=== PATIENT | female | born 1995 | race Two or more races ===

== ENCOUNTER 2016-10-07 19:54 | Inpatient (IN) | payer MEDICAID ==
[~2016-10-07] VITALS: Ht 152.4 cm; Wt 94.8 kg
[2016-10-07] MEDS ORDERED: NKM (20:01)
[2016-10-07 20:11] VITALS: BP 105/58
[2016-10-07] MEDS ORDERED: Metoclopramide 10mg/2ml Inj IVP ONE (20:15)
--- NOTE | 2016-10-07 20:26 | Emergency Room Report ---
History of Present Illness General Chief Complaint: Vomiting Source: Patient Present Illness HPI 21 YO F with no known medical problems sent from urgent care for CTAP after ultrasound showed "fluid around the liver" and nausea and vomiting for one week. No diarrhea, fever/chills. Sometimes associated with epigastric pain. Denies urinary complaints. Not taking anything for pain/nausea. No previous abd/pelvic surgery. Patient also endorsing "my iron level was 6" but I think she was referring to Hb. Not taking iron replacement currently. Allergies: Coded Allergies: No Known Allergies (Unverified , 10/07/16) Patient History Past Medical History: none Past Surgical History: none Pertinent Family History: none Social History: Denies: alcohol use, drug use, smoking Last Menstrual Period: Sep Now: No Immunizations: UTD Reviewed Nursing Documentation: PMH: Agreed, PSxH: Agreed Nursing Documentation-PMH Past Medical History: No Stated History Review of Systems All Other Systems: negative except mentioned in HPI Physical Exam Vital Signs Date Time Temp Pulse Resp B/P Pulse Ox O2 Delivery O2 Flow Rate FiO2 10/07/16 19:57 99.3 120 18 105/58 100 Room Air Sp02 EP Interpretation: reviewed, normal General Appearance: normal inspection, well appearing, no apparent distress, alert, GCS 15, non-toxic Head: normocephalic, atraumatic Eyes: bilateral eye EOMI, bilateral eye PERRL ENT: normal ENT inspection, hearing grossly normal, normal voice Neck: normal inspection, full range of motion, supple, no bony tend Respiratory: normal inspection, lungs clear, normal breath sounds, no respiratory distress, no retraction, no wheezing Cardiovascular #1: regular rate, rhythm, no edema Gastrointestinal: normal inspection, normal bowel sounds, non tender, soft, no guarding, no hernia Genitourinary: no CVA tenderness Musculoskeletal: normal inspection, back normal, normal range of motion, Sheila' s Sign negative Neurologic: normal inspection, alert, oriented x3, responsive, 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 VSS. Afebrile. DDx includes cholecystitis, gastritis, colitis, gastroneteritis PLAN: Labs, anti-emetic, CTAP, UA, reassess Reevaluation Time: 21:10 Last Vital Signs Date Time Temp Pulse Resp B/P Pulse Ox O2 Delivery O2 Flow Rate FiO2 10/07/16 20:11 99.3 112 18 105/58 100 Room Air Status: improved Reevaluation Impression Labs: Hb critically low. No leuks. UA grossly infected. No other metabolic abnormality A: - Send coags, T&S. Ordered 2U PRBCs - Rocephin IV for presumed UTI - CTAP pendign at time of endorsement to Dr Mcarthur at 930pm - Will admit at the least for anemia, need for transfusion Disposition: ADMITTED INPATIENT Condition: Serious LUÍS ORELLANA M.D. Oct 07, 2016 20:25
[2016-10-07 20:41] LABS: MEAN CORPUSCULAR HEMOGLOBIN 14.9 PG (27.0-31.0); MEAN CORPUSCULAR HGB CONC 25.8 G/DL (32.0-36.0); MEAN CORPUSCULAR VOLUME 58 FL (80-99); MEAN PLATELET VOLUME 8.5 FL (6.5-10.1); PLATELET COUNT 309 K/UL (150-450); RED BLOOD COUNT 3.51 M/UL (4.20-5.40); RED CELL DISTRIBUTION WIDTH 18.9 % (11.6-14.8); WHITE BLOOD COUNT 6.9 K/UL (4.8-10.8)
[2016-10-07 20:46] LABS: KETONES,URINE NEGATIVE (NEGATIVE); LEUKOCYTE ESTERASE ,URINE 3+ (NEGATIVE); NITRITE,URINE NEGATIVE (NEGATIVE); PH,URINE 6 (4.5-8.0); PROTEIN,URINE 2+ (NEGATIVE); UROBILINOGEN,URINE 12 MG/DL (0.0-1.0)
[2016-10-07 20:47] LABS: APPEARANCE,URINE SLIGHTLY CLOUDY
[2016-10-07 20:49] LABS: ICTOTEST NEGATIVE
[2016-10-07 20:53] LABS: SQUAMOUS EPITHELIAL CELL,UR FEW /LPF (NONE/OCC); WBC,URINE TNTC /HPF (0 - 2)
[2016-10-07 20:54] LABS: BACTERIA,URINE FEW /HPF
[2016-10-07 20:57] LABS: ALANINE AMINOTRANSFERASE 15 U/L (3-33); ANION GAP 16 (5-15); ASPARTATE AMINO TRANSFERASE 49 U/L (5-40); CALCIUM 8.4 mg/dL (8.6-10.2); CARBON DIOXIDE 24 mEQ/L (20-30); CHLORIDE 95 mEQ/L (98-107); CREATININE 0.9 mg/dL (0.5-0.9); GLOMERULAR FILTRATION RATE > 60 mL/min (>60); HEMOLYSIS 0; LIPASE 33 U/L (< 60); POTASSIUM 3.7 mEQ/L (3.4-4.9); SODIUM 135 mEQ/L (135-145); TOTAL PROTEIN 7.2 g/dL (6.6-8.7)
[2016-10-07] MEDS ORDERED: Iron Sucrose 100 MG in NS 55 ML IVPB SCH (21:00)
[2016-10-07] MEDS ORDERED: cefTRIAXone 1 GM in NS 55 ML IVPB ONE (21:15)
[2016-10-07 21:30] LABS: BILIRUBIN,DIRECT 0.3 mg/dL (0.1-0.3)
[2016-10-07 21:45] LABS: INR 1.2 (0.9-1.1); PROTHROMBIN TIME 12.3 SEC (9.30-11.50)
[2016-10-07 22:12] VITALS: BP 112/75
[2016-10-07 22:27] LABS: BAND NEUTROPHILS % (MANUAL) 0 % (0-8); BASOPHILS % (MANUAL) 1 % (0-2); EOSINOPHILS % (MANUAL) 0 % (0-3); LYMPHOCYTES % (MANUAL) 12 % (20-45); NEUTROPHILS % (MANUAL) 83 % (45-75); NUCLEATED RED BLOOD CELLS 2 /100 WBC; PLATELET ESTIMATE ADEQUATE; TOTAL CELLS COUNTED 100
[2016-10-07 22:29] LABS: ANISOCYTOSIS 3+; HYPOCHROMASIA 3+; MICROCYTES 4+; POLYCHROMASIA 2+
[2016-10-07 22:30] LABS: PLATELET MORPHOLOGY NORMAL
[2016-10-07 22:45] VITALS: BP 95/44
[2016-10-08] VITALS: BP 90/39
[2016-10-08] MEDS ORDERED: Acetaminophen 650 MG SUPP RECTAL PRN (00:15)
[2016-10-08] MEDS ORDERED: Vancomycin 1gm in D5W 275ml IVPB SCH ×2 (00:30→14:00)
[2016-10-08] MEDS ORDERED: Vancomycin 1gm inj IVPB ONE (00:34)
[2016-10-08] MEDS: D5 1/2NS w/KCl 20mEq 1,000 ML IV SCH ×3 (00:48→15:42)
[2016-10-08 04:00] VITALS: BP 105/53
[2016-10-08 08:00] VITALS: BP 112/57
--- NOTE | 2016-10-08 09:08 | History and Physical Report ---
DATE OF ADMISSION: 10/07/2016 CHIEF COMPLAINT AND REASON FOR HOSPITALIZATION: The patient admitted with nausea, vomiting, fever, possible UTI, and severe anemia. HISTORY OF PRESENT ILLNESS: The patient is a 21-year-old lady generally in good health, but she has heavy menses lasting about 10 days each month. Last menstrual period 09/29/2016 only lasted four days. She comes in with anemia suggestive of iron deficiency anemia, nausea, vomiting and fever. She also has headaches and shakiness. She has had nausea and vomiting for about five days. She had some urinary frequency, but no dysuria. PAST SURGICAL HISTORY: Surgeries, none. ALLERGIES: None known. HABITS: She is a nonsmoker or alcohol. SOCIAL HISTORY: She lives with extended family. She works at [employer]. SYSTEM REVIEW: HEENT: Head, eyes, ears, nose, and throat, vision hearing is good. ENDOCRINE: No known diabetes or thyroid disease. PULMONARY: No asthma, TB, or chronic cough. CARDIAC: No arrhythmias, palpitations or heart murmurs. GASTROINTESTINAL: She has had some vague abdominal discomfort in the midline from the epigastric to the suprapubic area. GENITOURINARY: See history of present illness. She is 0, para 0. NEUROLOGIC: No CVA, syncope or seizures. PHYSICAL EXAMINATION: VITAL SIGNS: She had fever 102.5 degrees, now 98.1 degrees, pulse 83, respirations 18, and blood pressure 105/53. HEAD, EYES EARS, NOSE, AND THROAT: Sclerae nonicteric. Ocular motions intact in all directions. Oral mucosa moist. NECK: No adenopathy or thyroid enlargement. LUNGS: Clear. HEART: Regular rhythm. No murmurs, gallops, or rubs. ABDOMEN: Soft without organomegaly or masses. EXTREMITIES: No edema. No cyanosis or clubbing. NEUROLOGIC: She is alert and oriented. Cranial nerves are intact. BREASTS: Deferred. RECTAL: Deferred. PELVIC: Deferred. GENITOURINARY: She needs a Gynecology examination electively. LABORATORY AND DIAGNOSTIC DATA: Pertinent labs, white count 6.9, hemoglobin 5.2, and MCV is 58. Chemistries are normal except for an AST of 49. The urine shows too numerous to count white cells and 5-10 red cells per high-power field. IMPRESSION: 1. Iron-deficiency anemia likely due to the heavy menses. 2. Pyuria and probable urinary tract infection with fever. 3. History of questionable abnormality of ultrasound with some fluid around the liver done in the clinic. CT scan was done, report pending. PLAN: The patient will be placed on broad-spectrum antibiotics, hydrated and comfort measures. She was transfused by the emergency room doctor and intravenous iron. Connor Sue M.D. DR: Aleksey JOB#: [id number] CC:
--- NOTE | 2016-10-08 09:18 | Diagnostic Imaging Report ---
Indications: Abdominal pain, vomiting for one week Technique: Continuous helical CT imaging of the abdomen and pelvis was performed with automatic exposure control following administration of nonionic IV contrast only, on a Siemens sensation [address] scanner. Axial, coronal, sagittal images were reconstructed at 5 mm slice thickness. No oral contrast was administered per requesting physician's order, despite no contraindications listed in either submitted clinical data or tech note.. CTDI volume(s): 20 mGy Total DLP: 1091 mGy-cm Findings: Comparison: None Lack of oral contrast limits evaluation of gastrointestinal tract, nondilated throughout. Mural thickening of one or more segments of small bowel not excludable. Appendix unremarkable. Ascites. No extraluminal gas or loculated fluid collections identified. Spleen 14.5 cm, no focal abnormality. Liver, gallbladder, pancreas, adrenal glands, kidneys, unopacified ureters and urinary bladder, uterus, bilateral adnexal regions, vascular structures, retroperitoneum, mesentery, remainder visualized abdominopelvic anatomy unremarkable. Lung bases and adjacent pleural surfaces clear. L5-S1 disc space mildly narrowed with marginal osteophyte formation. IMPRESSION: Ascites, nonspecific splenomegaly, nonspecific No other evidence of acute abdominopelvic disease, with limitation as described. Subtle but potentially significant abnormalities the gastrointestinal tract may be missed. Repeat CT scan with full oral and IV contrast preparation recommended for more complete evaluation, as clinically indicated Degenerative spondylosis Written preliminary report placed in PACS to 10/07/16 at [id number]
[2016-10-08] MEDS: Piperacillin/Tazobactam 3.375 GM in D5W 110 ML IVPB SCH ×2 (09:19→16:50)
[2016-10-08] MEDS ORDERED: NS 550ML IV ONE (10:43)
[2016-10-08] MEDS ORDERED: Tubing Blood Filter IV ONE (10:43)
[2016-10-08] MEDS ORDERED: Tubing IV Secondary IV ONE (10:43)
[2016-10-08] MEDS ORDERED: D5W 275ml ONE (10:43)
[2016-10-08 11:26] VITALS: BP 111/55
[2016-10-08 11:47] LABS: MEAN CORPUSCULAR HEMOGLOBIN 18.1 PG (27.0-31.0); MEAN CORPUSCULAR HGB CONC 28.5 G/DL (32.0-36.0); MEAN CORPUSCULAR VOLUME 64 FL (80-99); MEAN PLATELET VOLUME 9.3 FL (6.5-10.1); PLATELET COUNT 282 K/UL (150-450); RED BLOOD COUNT 4.06 M/UL (4.20-5.40); RED CELL DISTRIBUTION WIDTH 25.2 % (11.6-14.8); WHITE BLOOD COUNT 5.8 K/UL (4.8-10.8)
[2016-10-08 11:58] LABS: ALANINE AMINOTRANSFERASE 12 U/L (3-33); ANION GAP 14 (5-15); ASPARTATE AMINO TRANSFERASE 30 U/L (5-40); CALCIUM 8.4 mg/dL (8.6-10.2); CARBON DIOXIDE 25 mEQ/L (20-30); CHLORIDE 99 mEQ/L (98-107); CREATININE 0.7 mg/dL (0.5-0.9); GLOMERULAR FILTRATION RATE > 60 mL/min (>60); HEMOLYSIS 3; LACTATE DEHYDROGENASE 199 U/L (135-230); POTASSIUM 3.9 mEQ/L (3.4-4.9); SODIUM 138 mEQ/L (135-145); TOTAL PROTEIN 6.6 g/dL (6.6-8.7)
[2016-10-08 12:15] LABS: FERRITIN 14 ng/mL (13-150)
[2016-10-08 12:46] LABS: ERYTHROCYTE SEDIMENTATION RATE 48 MM/HR (0-20)
[2016-10-08 12:49] LABS: HEMOLYSIS 1; IRON 13 ug/dL (37-145); TOTAL IRON BINDING CAPACITY 285 ug/dL (250-400)
[2016-10-08 13:52] LABS: BAND NEUTROPHILS % (MANUAL) 2 % (0-8); LYMPHOCYTES % (MANUAL) 7 % (20-45); NEUTROPHILS % (MANUAL) 82 % (45-75); TOTAL CELLS COUNTED 100
[2016-10-08 13:53] LABS: ANISOCYTOSIS 2+; BASOPHILS % (MANUAL) 0 % (0-2); EOSINOPHILS % (MANUAL) 0 % (0-3); HYPOCHROMASIA 2+; MICROCYTES 2+; PLATELET ESTIMATE ADEQUATE
[2016-10-08 16:00] VITALS: BP 108/54
[2016-10-08 19:00] VITALS: BP 110/64
[2016-10-08] MEDS ORDERED: Iron Sucrose 100 MG in NS 55 ML IVPB SCH (21:00)
[2016-10-09] VITALS: BP 104/57
[2016-10-09] MEDS: Piperacillin/Tazobactam 3.375 GM in D5W 110 ML IVPB SCH ×3 (01:50→16:50)
[2016-10-09] MEDS: D5 1/2NS w/KCl 20mEq 1,000 ML IV SCH ×3 (01:50→15:51)
[2016-10-09 04:00] VITALS: BP_SYST 103; BP_DIAS 50; BP_DIAS 58
[2016-10-09 08:00] VITALS: BP 107/56
[2016-10-09 10:03] LABS: OTHERS PATHOLOGIST COMMENT
[2016-10-09 12:00] VITALS: BP 108/56
[2016-10-09 16:00] VITALS: BP 109/64
[2016-10-09] MEDS ORDERED: Tubing IV Secondary IV ONE (16:45)
[2016-10-09 20:00] VITALS: BP 112/55
--- NOTE | 2016-10-10 03:38 | Discharge Summary ---
DATE OF ADMISSION: 10/07/2016 DATE OF DISCHARGE: 10/09/2016 PERTINENT HISTORY: The patient is a 21-year-old lady admitted with severe anemia and she had heavy menses. She also complains of nausea, vomiting, fever, headache, and shakiness. PERTINENT PHYSICAL FINDINGS: See the dictated History and Physical. HEENT: Unremarkable. LUNGS: Clear. HEART: Regular rhythm. No murmur. ABDOMEN: Soft. No organomegaly. EXTREMITIES: No edema. NEUROLOGIC: She is alert and oriented. Cranial nerves are intact. COURSE IN THE HOSPITAL: The patient was given transfusions hemoglobin of 5.2. In the emergency room, hemoglobin was 7.3. There was no active bleeding iron deficiency, she was given Venofer. She had pyuria and was given empiric antibiotics. Urine culture grew only Staph species perhaps this was taken after antibiotics were given. It is not clear. If the patient fails to improve, tolerating the anemia and was given instructions and discharged home in stable condition. FINAL DIAGNOSES: 1. Iron-deficiency anemia likely to heavy menstruation. 2. Urinary tract infection. DISCHARGE DISPOSITION: She is discharged home on a regular diet. Ferrous sulfate 325 t.i.d., DSS 100 mg b.i.d., and Keflex 500 mg t.i.d. She is encouraged to follow up with her floorleader and follow up and come back and see Dr. Sue as needed. Connor Sue M.D. DR: Shlomo JOB#: [id number] CC:
== END 2016-10-09 21:30 | disposition home or self-care (01) | DRG 663 ==
LOC: EMR 20:31 → 4E 21:19 → EDBEDREQ 21:34
PROC: 30233N1 Transfusion of Nonautologous Red Blood Cells into Peripheral Vein, Percutaneous Approach (ICD-10-PCS; principal; 2016-10-08)
DX: D50.0 Iron deficiency anemia secondary to blood loss (chronic) (principal); N39.0 Urinary tract infection, site not specified; N92.0 Excessive and frequent menstruation with regular cycle
CPT/HCPCS: 36415; 74177; 80053; 81003; 81025; 82248; 82607; 82728; 83540; 83550; 83615; 83690; 84443; 85007; 85025; 85044; 85610; 85651; 85730; 86039; 86850; 86900; 86901; 86920; 87040; 87086; 87181; J2765